=== PATIENT | male | born 1990 | race Caucasian/White ===

== ENCOUNTER 2017-08-04 12:30 | Emergency (ER) | payer OTHER ==
[2017-08-04] MEDS ORDERED: LIDOCAINE 1% MDV 20ML VIAL As Ordered (13:02)
[2017-08-04] MEDS: LIDOCAINE 1% MDV 20ML VIAL SC (13:15)
[2017-08-04] MEDS: ADACEL/BOOSTRIX VACCINE (DIPHTH/PERTUSS/ACELL/TETANUS)0.5ML SYR (90715) IM (13:49)
== END 2017-08-04 13:58 | disposition home or self-care (01) ==
LOC: M ED 12:30
DX: S01.511A Laceration without foreign body of lip, initial encounter (principal); W22.8XXA Striking against or struck by other objects, initial encounter; Y92.9 Unspecified place or not applicable; Y93.9 Activity, unspecified; Y99.0 Civilian activity done for income or pay; F17.220 Nicotine dependence, chewing tobacco, uncomplicated; Z88.0 Allergy status to penicillin
CPT/HCPCS: 90715